=== PATIENT | female | born 1960 | race Caucasian/White ===

== ENCOUNTER → 2022-01-26 17:22 | Outpatient (CLI) | payer BC, SELFPAY ==
--- NOTE | 2022-01-26 17:36 | CT_ITS ---
EXAM: CT CHEST WITHOUT INTRAVENOUS CONTRAST CLINICAL INDICATION: Vocal cord paralysis-right TECHNIQUE: Helically acquired images were obtained of the chest without intravenous contrast. This CT exam was performed using one or more of the following dose reduction techniques: automated exposure control, adjustment of the mA and/or kV according to patient size, and/or use of iterative reconstruction technique. This report was created using [employer] report generation technology. CONTRAST: IV 100mL [id number] RADIATION DOSE: CTDIvol = 14.20 mGy, DLP = 672.55 mGy-cm COMPARISON: None. FINDINGS: LUNGS AND PLEURAL SPACES: Unremarkable. No mass. No consolidation or edema. No pleural effusion or thickening. No pneumothorax. HEART: Unremarkable. Heart size is normal. No pericardial effusion. No significant coronary artery calcifications. MEDIASTINUM: Unremarkable. No mediastinal or hilar adenopathy. Esophagus is unremarkable. No hiatal hernia. THYROID: Unremarkable. No thyroid lesions. BONES/JOINTS: Mild degenerative changes in the thoracic spine. No suspicious lytic or blastic abnormality. VASCULATURE: Unremarkable. Thoracic aorta is non-dilated. LYMPH NODES: Few small normal size right axillary nodes. No evidence of adenopathy. CT/Chest WITH Contrast IMPRESSION: No acute findings in the chest. Electronically Signed: Rafa Jaquez MD at 9:48 EDT ,
[2022-01-29 11:03] LABS: CREATININE FINGERSTICK 0.57 mg/dL (0.55-1.02)
[2022-02-02 08:39] LABS: EGFR FINGERSTICK > 60 mL/min (>60)
== END ==
DX: J38.01 Paralysis of vocal cords and larynx, unilateral (principal)
CPT/HCPCS: 71260; Q9967